=== PATIENT | male | born 1945 | race Asian ===

== ENCOUNTER 2018-01-24 08:54 | Inpatient (IN) | payer OTHER ==
[~2018-01-24] VITALS: Ht 165.1 cm; Wt 73.0 kg
[2018-01-24] MEDS ORDERED: AZITHROMYCIN 500MG/ 250ML 250 ML IV ONE (09:45)
[2018-01-24] MEDS ORDERED: cefTRIAXone 1GM/10ml IVPUSH 10 ML IV ONE (09:45)
[2018-01-24] MEDS ORDERED: LOSARTAN POTASSIUM 50 MG TAB PO ONE (10:00)
[2018-01-24] MEDS ORDERED: SODIUM CHLORIDE 0.9% 1,000 ML IV ONE (10:00)
[2018-01-24] MEDS ORDERED: ALBUTEROL SULF 2.5 MG/0.5ML(0.5%) NEB SOLN NEB ONE (10:00)
[2018-01-24] MEDS ORDERED: IPRATROPIUM BROM 0.5 MG/2.5ML INH SOL NEB ONE (10:00)
[2018-01-24] MEDS ORDERED: metFORMIN HYDROCHLORIDE 500 MG TAB PO ONE (10:00)
[2018-01-24 10:16] LABS: Basophils # (auto) 0 uL; Basophils % (auto) 0.4 % (0.0-2.0); Eosinophils # (auto) 0 uL; Hemoglobin 15.7 g/dL (13.5-17.5); Mean Corpuscular Hgb Conc. 34.1 g/dL (32.0-36.0); Mean Corpuscular Volume 90.8 fL (80.0-100.0); Monocytes # (auto) 0.9 uL; Monocytes % (auto) 8.9 % (0.0-12.0); Neutrophils # (auto) 7.8 uL; Neutrophils % (auto) 80.7 % (37.0-80.0); Platelet Count (auto) 183 10^3/uL (140-450); Red Blood Cells 5.06 10^6/uL (4.5-5.90); Red Cell Distribution Width 13.5 % (11.8-14.3); White Blood Cell 9.6 10^3/uL (4.4-10.8)
[2018-01-24 10:38] LABS: Albumin 3.5 g/dL (3.4-5.0); Bilirubin, Total 1.6 mg/dL (0.2-1.0); Calcium 8.5 mg/dL (8.5-10.1); Magnesium 2.6 mg/dL (1.6-2.6); Potassium 4.1 mmol/L (3.5-5.1); Total Protein 7.5 g/dL (6.4-8.2)
[2018-01-24] MEDS ORDERED: ASPirin 81 mg TAB PO ONE (11:00)
[2018-01-24] MEDS ORDERED: ACETAMINOPHEN 500 MG TAB PO PRN (11:15)
[2018-01-24] MEDS ORDERED: ALBUTEROL SULF 2.5 MG/0.5ML(0.5%) NEB SOLN NEB PRN (11:15)
[2018-01-24] MEDS ORDERED: POTASSIUM CHL 20 Meq TABLET PO ONE (11:15)
[2018-01-24] MEDS ORDERED: LACTULOSE 20Gm/30ML SOLN PO PRN (11:15)
[2018-01-24] MEDS ORDERED: DEXTROSE (50%) 50ML SYRG IV PRN (11:15)
[2018-01-24] MEDS ORDERED: TEMAZEPAM 15 MG CAP PO PRN (11:15)
[2018-01-24] MEDS ORDERED: InsuLIN REG 1unit/0.01ml Soln (100units/ml) SC ONE (11:15)
[2018-01-24] MEDS ORDERED: LORazepam 0.5 MG TAB PO PRN (11:15)
[2018-01-24] MEDS ORDERED: HYDROcodone-ACET 5/325MG TAB PO PRN (11:15)
[2018-01-24] MEDS ORDERED: PROMETHAZINE HCL 25 MG/ML 1ML IV PRN (11:15)
[2018-01-24] MEDS ORDERED: MORPHINE SULF INJ 2 MG/ML SYRINGE 1ML IV PRN ×2 (11:15)
[2018-01-24] MEDS ORDERED: NITROGLYCERIN 0.4 MG SL TAB SL PRN (11:15)
[2018-01-24] MEDS ORDERED: FUROSEMIDE 40 MG/4 ML VIAL IV ONE (11:15)
[2018-01-24 11:29] LABS: Lactic Acid w/Reflex 2.1 mmol/L (0.4-2.0)
[2018-01-24] MEDS: ACCU-CHEK COMFORT CURVE STRIP VI SCH ×3 (12:00→20:00)
[2018-01-24 12:05] VITALS: BP 134/72
[2018-01-24] MEDS: InsuLIN REG 1unit/0.01ml Soln (100units/ml) SC SCH ×3 (12:47→20:00)
[2018-01-24 13:00] VITALS: BP 115/75
[2018-01-24] MEDS: ALBUTEROL SULF 2.5 MG/0.5ML(0.5%) NEB SOLN NEB SCH ×3 (13:05→23:52)
[2018-01-24] MEDS: SODIUM CHLOR 0.9% PF (SALINE LOCK) 10ML VIAL/SYR IV SCH ×2 (14:00→14:06)
[2018-01-24] MEDS ORDERED: METF-370 PO (14:09)
[2018-01-24] MEDS ORDERED: LOSA100T27 PO (14:09)
[2018-01-24 17:00] VITALS: BP 125/74
[2018-01-24] MEDS: FUROSEMIDE 40 MG/4 ML VIAL IV SCH (17:10)
[2018-01-24] MEDS ORDERED: IOHEXOL 350 MG/ML 100ML IJ ONE (17:56)
[2018-01-24 22:00] VITALS: BP 105/66
[2018-01-24] MEDS: ATORVASTATIN 20 MG TAB PO SCH (22:40)
[2018-01-24] MEDS: POTASSIUM CHL 20 Meq TABLET PO SCH (22:40)
[2018-01-24] MEDS: CARVEDILOL 3.125 MG TAB PO SCH (22:43)
[2018-01-25 01:41] VITALS: BP 105/66
[2018-01-25] MEDS: ACCU-CHEK COMFORT CURVE STRIP VI SCH ×6 (04:00→19:59)
[2018-01-25] MEDS: InsuLIN REG 1unit/0.01ml Soln (100units/ml) SC SCH ×6 (04:18→19:59)
[2018-01-25 05:00] VITALS: BP 101/71
[2018-01-25] MEDS: ALBUTEROL SULF 2.5 MG/0.5ML(0.5%) NEB SOLN NEB SCH ×3 (05:57→18:04)
[2018-01-25] MEDS: FUROSEMIDE 40 MG/4 ML VIAL IV SCH ×2 (06:41→17:22)
[2018-01-25] MEDS: SODIUM CHLOR 0.9% PF (SALINE LOCK) 10ML VIAL/SYR IV SCH ×8 (06:42→22:48)
[2018-01-25 06:58] LABS: Basophils # (auto) 0.1 uL; Basophils % (auto) 0.5 % (0.0-2.0); Eosinophils # (auto) 0.2 uL; Eosinophils % (auto) 2.2 % (0.0-7.0); Hematocrit 47.4 % (41.0-53.0); Lymphocytes # (auto) 2.9 uL; Lymphocytes % (auto) 26.5 % (10.0-50.0); Mean Corpuscular Hemoglobin 30.9 pg (28.0-32.0); Mean Corpuscular Hgb Conc. 33.8 g/dL (32.0-36.0); Mean Corpuscular Volume 91.3 fL (80.0-100.0); Monocytes # (auto) 1.2 uL; Monocytes % (auto) 10.8 % (0.0-12.0); Neutrophils # (auto) 6.7 uL; Nucleated Red Blood Cells % 0.1 %; Platelet Count (auto) 231 10^3/uL (140-450); Red Blood Cells 5.19 10^6/uL (4.5-5.90); Red Cell Distribution Width 13.5 % (11.8-14.3); White Blood Cell 11.1 10^3/uL (4.4-10.8)
[2018-01-25 07:25] LABS: Albumin 3.4 g/dL (3.4-5.0); BUN/Creatinine Ratio 26.9; Bilirubin, Total 1.1 mg/dL (0.2-1.0); Potassium 3.7 mmol/L (3.5-5.1); Total Protein 7.2 g/dL (6.4-8.2)
[2018-01-25 09:24] VITALS: BP 108/64
[2018-01-25] MEDS: cefTRIAXone 1GM/10ml IVPUSH 10 ML IV SCH (09:41)
[2018-01-25] MEDS: CARVEDILOL 3.125 MG TAB PO SCH ×2 (09:42→22:49)
[2018-01-25] MEDS: ASPirin 81 mg TAB PO SCH (09:42)
[2018-01-25] MEDS: AZITHROMYCIN 500MG/ 250ML 250 ML IV SCH (09:42)
[2018-01-25] MEDS: POTASSIUM CHL 20 Meq TABLET PO SCH ×2 (09:42→22:49)
[2018-01-25] MEDS: ENOXAPARIN SOD 40 MG/0.4 ML SYRINGE SC SCH (09:43)
[2018-01-25] MEDS: NITROGLYCERIN 0.2MG/HR TOPICAL PATCH TD SCH (09:43)
[2018-01-25] MEDS: ENALAPRIL MALEATE 2.5 MG TAB PO SCH (09:43)
[2018-01-25 12:48] VITALS: BP 90/64
[2018-01-25 17:06] VITALS: BP 111/70
[2018-01-25 22:00] VITALS: BP 121/69
[2018-01-25] MEDS: ATORVASTATIN 20 MG TAB PO SCH (22:49)
[2018-01-26] MEDS: ALBUTEROL SULF 2.5 MG/0.5ML(0.5%) NEB SOLN NEB SCH ×5 (00:02→23:55)
[2018-01-26] MEDS: ACCU-CHEK COMFORT CURVE STRIP VI SCH ×6 (00:23→21:19)
[2018-01-26] MEDS: InsuLIN REG 1unit/0.01ml Soln (100units/ml) SC SCH ×6 (04:31→21:19)
[2018-01-26 05:00] VITALS: BP 105/74
[2018-01-26] MEDS: FUROSEMIDE 40 MG/4 ML VIAL IV SCH ×2 (06:06→17:47)
[2018-01-26] MEDS: SODIUM CHLOR 0.9% PF (SALINE LOCK) 10ML VIAL/SYR IV SCH ×6 (06:06→21:20)
[2018-01-26 06:40] LABS: Albumin 3.3 g/dL (3.4-5.0); BUN/Creatinine Ratio 31.4; Bilirubin, Total 0.6 mg/dL (0.2-1.0); Calcium 8.7 mg/dL (8.5-10.1); Potassium 4.2 mmol/L (3.5-5.1); Total Protein 6.8 g/dL (6.4-8.2)
[2018-01-26 08:30] VITALS: BP 124/88
[2018-01-26] MEDS: cefTRIAXone 1GM/10ml IVPUSH 10 ML IV SCH (09:00)
[2018-01-26] MEDS: ASPirin 81 mg TAB PO SCH (11:39)
[2018-01-26] MEDS: AZITHROMYCIN 500MG/ 250ML 250 ML IV SCH (11:39)
[2018-01-26] MEDS: POTASSIUM CHL 20 Meq TABLET PO SCH ×2 (11:40→21:20)
[2018-01-26] MEDS: ENOXAPARIN SOD 40 MG/0.4 ML SYRINGE SC SCH (11:40)
[2018-01-26] MEDS: CARVEDILOL 3.125 MG TAB PO SCH ×2 (11:40→21:20)
[2018-01-26] MEDS: ENALAPRIL MALEATE 2.5 MG TAB PO SCH (11:40)
[2018-01-26] MEDS: NITROGLYCERIN 0.2MG/HR TOPICAL PATCH TD SCH (11:41)
[2018-01-26 13:00] VITALS: BP 111/86
[2018-01-26 16:57] VITALS: BP 119/63
[2018-01-26] MEDS: ATORVASTATIN 20 MG TAB PO SCH (21:21)
[2018-01-26 22:00] VITALS: BP 102/72
[2018-01-27] MEDS: ACCU-CHEK COMFORT CURVE STRIP VI SCH ×6 (00:34→20:31)
[2018-01-27] MEDS: InsuLIN REG 1unit/0.01ml Soln (100units/ml) SC SCH ×6 (04:19→20:32)
[2018-01-27 05:42] VITALS: BP 110/75
[2018-01-27] MEDS: SODIUM CHLOR 0.9% PF (SALINE LOCK) 10ML VIAL/SYR IV SCH ×5 (05:56→20:32)
[2018-01-27] MEDS: FUROSEMIDE 40 MG/4 ML VIAL IV SCH ×2 (05:56→18:00)
[2018-01-27] MEDS ORDERED: ceFAZolin 1GM/50ML 0 ML IV ONE (07:01)
[2018-01-27] MEDS: ALBUTEROL SULF 2.5 MG/0.5ML(0.5%) NEB SOLN NEB SCH ×3 (07:33→18:50)
[2018-01-27 09:00] VITALS: BP 111/72
[2018-01-27] MEDS: cefTRIAXone 1GM/10ml IVPUSH 10 ML IV SCH (09:00)
[2018-01-27] MEDS: ENALAPRIL MALEATE 2.5 MG TAB PO SCH (10:00)
[2018-01-27] MEDS: ENOXAPARIN SOD 40 MG/0.4 ML SYRINGE SC SCH (10:00)
[2018-01-27] MEDS: AZITHROMYCIN 500MG/ 250ML 250 ML IV SCH (10:00)
[2018-01-27] MEDS: CARVEDILOL 3.125 MG TAB PO SCH ×2 (10:00→20:32)
[2018-01-27] MEDS: NITROGLYCERIN 0.2MG/HR TOPICAL PATCH TD SCH (10:00)
[2018-01-27] MEDS: ASPirin 81 mg TAB PO SCH (10:00)
[2018-01-27] MEDS: POTASSIUM CHL 20 Meq TABLET PO SCH ×2 (10:00→20:32)
[2018-01-27 12:42] VITALS: BP 123/76
[2018-01-27 17:06] VITALS: BP 112/64
[2018-01-27 19:00] LABS: Basophils # (auto) 0 uL; Basophils % (auto) 0.4 % (0.0-2.0); Eosinophils # (auto) 0.2 uL; Eosinophils % (auto) 3.6 % (0.0-7.0); Hematocrit 47.5 % (41.0-53.0); Lymphocytes # (auto) 2.3 uL; Lymphocytes % (auto) 35.7 % (10.0-50.0); Mean Corpuscular Hemoglobin 30.7 pg (28.0-32.0); Mean Corpuscular Hgb Conc. 33.7 g/dL (32.0-36.0); Mean Corpuscular Volume 91.1 fL (80.0-100.0); Monocytes # (auto) 0.7 uL; Monocytes % (auto) 10.7 % (0.0-12.0); Neutrophils # (auto) 3.2 uL; Neutrophils % (auto) 49.6 % (37.0-80.0); Nucleated Red Blood Cells % 0.1 %; Platelet Count (auto) 250 10^3/uL (140-450); Red Blood Cells 5.22 10^6/uL (4.5-5.90); Red Cell Distribution Width 13.5 % (11.8-14.3); White Blood Cell 6.5 10^3/uL (4.4-10.8)
[2018-01-27 19:19] LABS: BUN/Creatinine Ratio 23.7; Calcium 8.2 mg/dL (8.5-10.1); Potassium 4.4 mmol/L (3.5-5.1)
[2018-01-27] MEDS: ATORVASTATIN 20 MG TAB PO SCH (20:32)
[2018-01-27 21:53] VITALS: BP 104/64
[2018-01-28] MEDS: ACCU-CHEK COMFORT CURVE STRIP VI SCH ×7 (01:14→23:40)
[2018-01-28] MEDS: InsuLIN REG 1unit/0.01ml Soln (100units/ml) SC SCH ×7 (05:00→23:49)
[2018-01-28 05:01] VITALS: BP 113/74
[2018-01-28] MEDS: SODIUM CHLOR 0.9% PF (SALINE LOCK) 10ML VIAL/SYR IV SCH ×3 (05:48→21:53)
[2018-01-28] MEDS: FUROSEMIDE 40 MG/4 ML VIAL IV SCH ×2 (05:48→17:53)
[2018-01-28 06:50] VITALS: BP 113/87
[2018-01-28] MEDS: ALBUTEROL SULF 2.5 MG/0.5ML(0.5%) NEB SOLN NEB SCH ×4 (07:27→23:55)
[2018-01-28 07:32] LABS: Partial Thromboplastin Time 30.9 sec (23.78-33.04); Prothrombin Time 10.7 sec (9.27-12.13)
[2018-01-28 08:24] VITALS: BP 112/74
[2018-01-28] MEDS: cefTRIAXone 1GM/10ml IVPUSH 10 ML IV SCH (08:52)
[2018-01-28] MEDS: POTASSIUM CHL 20 Meq TABLET PO SCH ×2 (08:53→21:53)
[2018-01-28] MEDS: ENALAPRIL MALEATE 2.5 MG TAB PO SCH (08:53)
[2018-01-28] MEDS: CARVEDILOL 3.125 MG TAB PO SCH ×2 (08:53→21:53)
[2018-01-28] MEDS: NITROGLYCERIN 0.2MG/HR TOPICAL PATCH TD SCH (08:54)
[2018-01-28] MEDS: ASPirin 81 mg TAB PO SCH (08:55)
[2018-01-28] MEDS: AZITHROMYCIN 500MG/ 250ML 250 ML IV SCH (08:55)
[2018-01-28] MEDS: ENOXAPARIN SOD 40 MG/0.4 ML SYRINGE SC SCH (08:56)
[2018-01-28] MEDS ORDERED: diphenhdrAMINE HCL 50 MG/1 ML VL IV ONE (10:15)
[2018-01-28] MEDS ORDERED: LIDOCAINE 2% (LOCAL ANESTH.) PF 5ml SDV ONE (12:07)
[2018-01-28] MEDS ORDERED: IODIXANOL 320MG/ML 100ML BTL IV ONE ×2 (12:07→12:24)
[2018-01-28] MEDS ORDERED: MIDAZOLAM HCL 1MG/1ML-2 ML VIAL ONE (12:24)
[2018-01-28] MEDS ORDERED: fentaNYL CITRATE 100 MCG/2 ML VL ONE (12:24)
[2018-01-28] MEDS ORDERED: SODIUM CHL 0.9% 0 ML ONE (12:24)
[2018-01-28] MEDS ORDERED: ANGIOMAX 250 MG VIAL IV ONE (12:24)
[2018-01-28 12:40] VITALS: BP 96/66
[2018-01-28 16:20] VITALS: BP 99/55
[2018-01-28 21:34] VITALS: BP 103/58
[2018-01-28] MEDS: ATORVASTATIN 20 MG TAB PO SCH (21:53)
[2018-01-29 04:34] VITALS: BP 102/66
[2018-01-29] MEDS: ACCU-CHEK COMFORT CURVE STRIP VI SCH ×3 (05:36→12:08)
[2018-01-29] MEDS: InsuLIN REG 1unit/0.01ml Soln (100units/ml) SC SCH ×3 (05:36→12:00)
[2018-01-29] MEDS: FUROSEMIDE 40 MG/4 ML VIAL IV SCH (05:37)
[2018-01-29] MEDS: SODIUM CHLOR 0.9% PF (SALINE LOCK) 10ML VIAL/SYR IV SCH (05:37)
[2018-01-29] MEDS ORDERED: SODIUM CHLORIDE 0.9 % NEB SOLN 3ML NEB ONE (05:40)
[2018-01-29] MEDS: ALBUTEROL SULF 2.5 MG/0.5ML(0.5%) NEB SOLN NEB SCH ×2 (05:57→10:31)
[2018-01-29 05:58] LABS: Basophils # (auto) 0 uL; Basophils % (auto) 0.4 % (0.0-2.0); Eosinophils # (auto) 0.2 uL; Eosinophils % (auto) 3.9 % (0.0-7.0); Hematocrit 43.2 % (41.0-53.0); Hemoglobin 15.1 g/dL (13.5-17.5); Lymphocytes # (auto) 1.8 uL; Lymphocytes % (auto) 28.4 % (10.0-50.0); Mean Corpuscular Hemoglobin 31.4 pg (28.0-32.0); Mean Corpuscular Hgb Conc. 34.9 g/dL (32.0-36.0); Mean Corpuscular Volume 89.9 fL (80.0-100.0); Monocytes # (auto) 0.6 uL; Monocytes % (auto) 10.4 % (0.0-12.0); Neutrophils # (auto) 3.5 uL; Neutrophils % (auto) 56.9 % (37.0-80.0); Platelet Count (auto) 215 10^3/uL (140-450); Red Blood Cells 4.81 10^6/uL (4.5-5.90); Red Cell Distribution Width 13.4 % (11.8-14.3); White Blood Cell 6.2 10^3/uL (4.4-10.8)
[2018-01-29 06:23] LABS: BUN/Creatinine Ratio 24.8; Calcium 8.6 mg/dL (8.5-10.1); Potassium 4.3 mmol/L (3.5-5.1)
[2018-01-29 07:50] VITALS: BP 115/77
[2018-01-29 08:30] VITALS: BP 115/77
[2018-01-29] MEDS: NITROGLYCERIN 0.2MG/HR TOPICAL PATCH TD SCH (10:00)
[2018-01-29] MEDS: cefTRIAXone 1GM/10ml IVPUSH 10 ML IV SCH (10:07)
[2018-01-29] MEDS: ENOXAPARIN SOD 40 MG/0.4 ML SYRINGE SC SCH (10:07)
[2018-01-29] MEDS: ASPirin 81 mg TAB PO SCH (10:08)
[2018-01-29] MEDS: POTASSIUM CHL 20 Meq TABLET PO SCH (10:08)
[2018-01-29] MEDS: AZITHROMYCIN 500MG/ 250ML 250 ML IV SCH (10:08)
[2018-01-29] MEDS: CARVEDILOL 3.125 MG TAB PO SCH (10:09)
[2018-01-29] MEDS: ENALAPRIL MALEATE 2.5 MG TAB PO SCH (10:09)
[2018-01-29 12:36] VITALS: BP 99/71
[2018-01-29 13:24] VITALS: BP 99/71
== END 2018-01-29 13:45 | disposition home or self-care (01) | DRG 871 ==
LOC: ER 08:54 → TELE-CENTR 08:55
PROVIDERS: ADMIT Internal Medicine; ATTEND Family Medicine
PROC: B2111ZZ Fluoroscopy of Multiple Coronary Arteries using Low Osmolar Contrast (ICD-10-PCS; principal; 2018-01-28)
PROC: 4A023N7 Measurement of Cardiac Sampling and Pressure, Left Heart, Percutaneous Approach (ICD-10-PCS; 2018-01-28)
PROC: B2151ZZ Fluoroscopy of Left Heart using Low Osmolar Contrast (ICD-10-PCS; 2018-01-28)
DX: A41.9 Sepsis, unspecified organism (principal); J18.9 Pneumonia, unspecified organism; I50.43 Acute on chronic combined systolic (congestive) and diastolic (congestive) heart failure; I42.9 Cardiomyopathy, unspecified; I11.0 Hypertensive heart disease with heart failure; E11.65 Type 2 diabetes mellitus with hyperglycemia; E78.5 Hyperlipidemia, unspecified; I25.10 Atherosclerotic heart disease of native coronary artery without angina pectoris; E78.00 Pure hypercholesterolemia, unspecified; Z83.3 Family history of diabetes mellitus
CPT/HCPCS: 36415; 71046; 71275; 80048; 80053; 80061; 82550; 82962; 83036; 83605; 83735; 83880; 84443; 84484; 85025; 85379; 85610; 85652; 85730; 86141; 87040; 87081; 87804; 93005; 93306; 94640; 94761; 96361; 96365; 96375; 99152; J0690; J1815; J2250; Q9967